=== PATIENT | male | born 2000 | race Caucasian/White ===

== ENCOUNTER 2020-06-28 22:36 | Emergency (ER) | payer BC ==
[~2020-06-28] VITALS: Ht 190.5 cm; Wt 89.1 kg
[2020-06-28 22:37] VITALS: BP 129/84
== END 2020-06-29 00:40 | disposition home or self-care (01) ==
LOC: ED 23:00
DX: S62.344A Nondisplaced fracture of base of fourth metacarpal bone, right hand, initial encounter for closed fracture (principal); G89.11 Acute pain due to trauma; X58.XXXA Exposure to other specified factors, initial encounter; Y93.89 Activity, other specified; Y92.098 Other place in other non-institutional residence as the place of occurrence of the external cause; Y99.8 Other external cause status
CPT/HCPCS: 29125; 99283

== ENCOUNTER 2020-11-24 10:08 | Emergency (ER) | payer BC ==
[~2020-11-24] VITALS: Ht 190.5 cm; Wt 84.2 kg
[2020-11-24] MEDS ORDERED: DICYCLOMINE 10 MG/ML, 2ML IM ONE (11:00)
[2020-11-24] MEDS ORDERED: ONDANSETRON ODT 4 MG PO ONE (11:00)
[2020-11-24] MEDS ORDERED: ONDANSETRON ODT 4 MG ONE (11:03)
[2020-11-24] MEDS ORDERED: DICYCLOMINE 10 MG/ML, 2ML ONE ×2 (11:03→11:07)
[2020-11-24 11:19] LABS: BASOPHILS % (AUTO) 0 % (0-1); EOSINOPHILS % (AUTO) 1 % (1-7); LYMPHOCYTES % (AUTO) 2 % (22-44); MEAN CORPUSCULAR HEMOGLOBIN 31.9 pg (27.5-34.5); MEAN CORPUSCULAR HGB CONC 35.1 g/dL (33.2-36.2); MONOCYTES % (AUTO) 4 % (2-9); NEUTROPHILS % (AUTO) 93 % (42-75); PLATELET COUNT 228 x10^3/uL (130-400); RED BLOOD COUNT 5.38 x10^6/uL (4.38-5.82); RED CELL DISTRIBUTION WIDTH 12.6 % (9.4-14.8)
[2020-11-24 11:30] LABS: ANION GAP 6 mmol/L (5-15); CALCIUM 9.2 mg/dL (8.5-10.1); CHLORIDE 109 mmol/L (98-107)
[2020-11-24 11:33] LABS: ALANINE AMINOTRANSFERASE 31 U/L (12-78); ALKALINE PHOSPHATASE 74 U/L (45-117); BILIRUBIN,TOTAL 1.5 mg/dL (0.2-1.0); CREATININE 1.26 mg/dL (0.7-1.3); TOTAL PROTEIN 7.6 g/dL (6.4-8.2)
[2020-11-24 12:00] VITALS: BP 107/52
--- NOTE | 2020-11-24 12:19 | NUR ---
PT REPORTS ABLE TO HOLD DOWN WATER X10 MINUTES, WILL CONTINUE TO MONITOR.
--- NOTE | 2020-11-24 12:30 | NUR ---
PT TOLERATING FLUIDS. RESP EVEN AND UNLABORED, NADN.
--- NOTE | 2020-11-24 12:58 | NUR ---
Patient given discharge instructions and they have confirmed that they understand the instructions. Patient ambulatory with steady gait.
== END 2020-11-24 13:01 | disposition home or self-care (01) ==
LOC: ED 10:51
DX: K52.9 Noninfective gastroenteritis and colitis, unspecified (principal)
CPT/HCPCS: 36415; 80053; 83690; 85025; 96372; 99283; J0500; Q0162